=== PATIENT | female | born 1975 | race Caucasian/White ===

== ENCOUNTER → 2016-09-20 | Outpatient (CLI) | payer MEDICAID ==
--- NOTE | 2016-09-20 13:48 | DX ---
Chest, PA and Lateral History: Cough, wheezing, dyspnea x2 months, left-sided chest pain, history of asthma and cigarette s moking Comparison: August 22, 2011 Findings: Lungs are clear, without infiltrate or consolidation. Heart size is normal. There is no april nopathy or mass lesion. There is no pleural effusion, pneumomediastinum or pneumothorax. Bones are un remarkable for age. Impression: No pneumonia.
== END ==
LOC: FIMAGING 13:10
PROVIDERS: ATTEND Family Medicine
DX: R05 Cough (principal); R06.00 Dyspnea, unspecified; R07.9 Chest pain, unspecified; J45.909 Unspecified asthma, uncomplicated; Z87.891 Personal history of nicotine dependence

== ENCOUNTER 2017-01-17 14:11 | Emergency (ER) | payer MEDICAID ==
--- NOTE | 2017-01-17 14:28 | EDPHY ---
H & P Stated Complaint: multiple complaints of achy joints muscle twitching Time Seen by Provider: 01/17/17 14:27 HPI/ROS: CHIEF COMPLAINT: [ ] HISTORY OF PRESENT ILLNESS: [Need 4: Location, Duration, Severity, Quality, Context, Timing Modifying Factors, Associated S&S] REVIEW OF SYSTEMS: A comprehensive 10 point review of systems is otherwise negative aside from elements mentioned in the history of present illness. - Personal History LMP (Females 10-55): Irregular Current Tetanus Diphtheria and Acellular Pertussis (TDAP): No - Medical/Surgical History Hx Asthma: Yes Hx Chronic Respiratory Disease: No Hx Diabetes: No Hx Cardiac Disease: No Hx Renal Disease: No Hx Cirrhosis: No Hx Alcoholism: No Hx HIV/AIDS: No Hx Splenectomy or Spleen Trauma: No Other PMH: Addiction hx: alcohol and drugs psych, appy. BIPOLAR, PTSD, ANXIETY. CHRONIC BRONCHITIS,ASTHMA. POSSIBLE SZ DISORDER. ESOPAHGITIS, ibs, GI ISSUES. HYPOGLYCEMIA. UTI APR 2014 - Social History Smoking Status: Former smoker - Physical Exam Exam: General Appearance: [Alert, no distress] Eyes: [Pupils equal and round no pallor or injection] ENT, Mouth: [Mucous membranes moist] Respiratory: [There are no retractions, lungs are clear to auscultation] Cardiovascular: [Regular rate and rhythm] Gastrointestinal: [Abdomen is soft and nontender, no masses, bowel sounds normal] Neurological: [A&O, normal motor function, normal sensory exam, normal cranial nerves] Skin: [Warm and dry, no rashes] Musculoskeletal: [Neck is supple nontender] Extremities: [symmetrical, full range of motion] Psychiatric: [Patient is oriented X 3, there is no agitation] Constitutional: Initial Vital Signs Temperature (C) 36.8 C 01/17/17 14:18 Heart Rate 108 H 01/17/17 14:18 Respiratory Rate 16 01/17/17 14:18 Blood Pressure 122/87 H 01/17/17 14:18 O2 Sat (%) 98 01/17/17 14:18 O2 Delivery Mode Room Air Allergies/Adverse Reactions: aripiprazole [From Abilify] Allergy (Verified 06/01/14 01:28) azithromycin Allergy (Verified 06/01/14 01:28) erythromycin base [Erythromycin Base] Allergy (Verified 06/01/14 01:28) nefazodone HCl [From Serzone] Allergy (Verified 06/01/14 01:28) Penicillins Allergy (Verified 06/01/14 01:28) Home Medications: Medication Instructions Recorded buPROPion [Wellbutrin 100mg (RX)] 0 mg PO TID 07/15/12 Prestique 06/01/14 Albuterol Sulfate [Albuterol 08/19/14 Inhaler Hfa] Departure - Departure Referrals: Debbie Reyes MD [Primary Care Provider] - As per Instructions
--- NOTE | 2017-01-17 14:52 | EDPHY ---
H & P Stated Complaint: multiple complaints of achy joints muscle twitching Time Seen by Provider: 01/17/17 14:27 HPI/ROS: CHIEF COMPLAINT: Multiple complaints HISTORY OF PRESENT ILLNESS: The patient presents to the ED with multiple complaints. She reportedly has had some paresthesias, diarrhea, palpitations, visual changes and mild abdominal pain. 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 She reportedly had been on therapy which was stopped by her retinal specialist. The patient typically receives her care at the [facility]. The patient is also on a number of psychiatric medications and has recently changed her dose of Neurontin. REVIEW OF SYSTEMS: A comprehensive 10 point review of systems is otherwise negative aside from elements mentioned in the history of present illness. Source: Patient Exam Limitations: No limitations - Personal History LMP (Females 10-55): Irregular Current Tetanus Diphtheria and Acellular Pertussis (TDAP): No - Medical/Surgical History Hx Asthma: Yes Hx Chronic Respiratory Disease: No Hx Diabetes: No Hx Cardiac Disease: No Hx Renal Disease: No Hx Cirrhosis: No Hx Alcoholism: No Hx HIV/AIDS: No Hx Splenectomy or Spleen Trauma: No Other PMH: Addiction hx: alcohol and drugs psych, appy. BIPOLAR, PTSD, ANXIETY. CHRONIC BRONCHITIS,ASTHMA. POSSIBLE SZ DISORDER. ESOPAHGITIS, ibs, GI ISSUES. HYPOGLYCEMIA. UTI APR 2014 - Social History Smoking Status: Former smoker - Physical Exam Exam: General Appearance: Alert, no distress Eyes: Pupils equal and round no pallor or injection ENT, Mouth: Mucous membranes moist Respiratory: There are no retractions, lungs are clear to auscultation Cardiovascular: Regular rate and rhythm Gastrointestinal: Abdomen is soft and nontender, no masses, bowel sounds normal Neurological: A&O, normal motor function, normal sensory exam, normal cranial nerves Skin: Warm and dry, no rashes Musculoskeletal: Neck is supple nontender Extremities: symmetrical, full range of motion Constitutional: Initial Vital Signs Temperature (C) 36.8 C 01/17/17 14:18 Heart Rate 108 H 01/17/17 14:18 Respiratory Rate 16 01/17/17 14:18 Blood Pressure 122/87 H 01/17/17 14:18 O2 Sat (%) 98 01/17/17 14:18 O2 Delivery Mode Room Air Allergies/Adverse Reactions: aripiprazole [From Abilify] Allergy (Verified 06/01/14 01:28) azithromycin Allergy (Verified 06/01/14 01:28) erythromycin base [Erythromycin Base] Allergy (Verified 06/01/14 01:28) nefazodone HCl [From Serzone] Allergy (Verified 06/01/14 01:28) Penicillins Allergy (Verified 06/01/14 01:28) Home Medications: Medication Instructions Recorded buPROPion [Wellbutrin 100mg (RX)] 0 mg PO TID 07/15/12 Prestique 06/01/14 Albuterol Sulfate [Albuterol 08/19/14 Inhaler Hfa] Medical Decision Making ED Course/Re-evaluation: The patient presents to the ED with a multiple set constellation of complaints primarily surroundings concerns of her toxoplasmosis. I have told the patient that I feel she be more appropriately evaluated by infectious disease. She has no evidence of septic physiology or an abnormal neurologic examination. The patient has been to the care of a neurologist for her chronic seizure disorder. She is also under the care of a retinal specialist. 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 Please contact the Infectious Disease specialist you have been referred to for further discussion of your history of toxoplasmosis. 2. Please follow up with your primary care provider as scheduled. 3. I do recommend scheduling a follow-up appointment with your retinal specialist. Referrals: Debbie Reyes MD [Primary Care Provider] - As per Instructions Kali Her MD [Medical Doctor] - As per Instructions
[2017-01-17] MEDS ORDERED: NS 1,000 ML IV ONE (15:28)
--- NOTE | 2017-01-17 15:35 | CPEKG ---
Heart Rate: 81 RR Interval: 741 P-R Interval: 160 QRSD Interval: 86 QT Interval: 372 QTC Interval: 432 P [place]: 80 QRS [place]: 31 T Wave [place]: 78 EKG Severity - NORMAL ECG - EKG Impression: SINUS RHYTHM Electronically Signed By: Rodolfo Gonzalez 17-Jan-2017 17:28:35
[2017-01-17 16:08] LABS: % IMMATURE GRANULYOCYTES 0.5 % (0.0-1.1); ABSOLUTE IMMATURE GRANULOCYTES 0.05 10^3/uL (0.00-0.10); ADD DIFF? NO; ADD MORPH? NO; ADD SCAN? NO; ATYPICAL LYMPHOCYTE FLAG 0 (0-99); FRAGMENT RBC FLAG 0 (0-99); HEMOGLOBIN 13.7 g/dL (12.6-16.3); LEFT SHIFT FLG 0 (0-99); LIPEMIA HEMOLYSIS FLAG 90 (0-99); MEAN CELL HEMOGLOBIN 31.1 pg (27.9-34.1); MEAN CELL HEMOGLOBIN CONCENTR. 34.3 g/dL (32.4-36.7); MEAN CELL VOLUME 90.9 fL (81.5-99.8); MEAN PLATELET VOLUME 8.9 fL (8.7-11.7); PLATELET CLUMPS FLAG 20 (0-99); PLATELET COUNT 316 10^3/uL (150-400); RED CELL DISTRIBUTION WIDTH 12.4 % (11.5-15.2)
[2017-01-17 16:21] LABS: ALANINE AMINOTRANSFERASE 24 IU/L (9-52); ALBUMIN 4.8 g/dL (3.5-5.0); ALKALINE PHOSPHATASE 68 IU/L (38-126); ANION GAP 11 mEq/L (8-16); ASPARTATE AMINOTRANSFERASE 22 IU/L (14-46); BILIRUBIN,TOTAL 0.5 mg/dL (0.1-1.4); BILIRUBIN-CONJUGATED 0.5 mg/dL (0.0-0.5); CALCIUM 9.7 mg/dL (8.5-10.4); CARBON DIOXIDE 22 mEq/l (22-31); CHLORIDE 100 mEq/L (97-110); CREATININE 0.6 mg/dL (0.6-1.0); GLOMERULAR FILTRATION RATE > 60; GLUCOSE 110 mg/dL (70-100); SODIUM 133 mEq/L (134-144); TOTAL PROTEIN 7.5 g/dL (6.3-8.2)
[2017-01-17 16:44] VITALS: O2SAT 96
[2017-01-17] MEDS ORDERED: GADOBUTROL 10 ML VIAL IVP ONE (18:23)
[2017-01-17 19:19] VITALS: BP 128/83; PULSE 76; RESP 16; TEMP 98.8
[2017-01-19 11:11] LABS: TOXOPLASMA IGG ANTIBODY Positive (Negative); TOXOPLASMA IGG VALUE >900 IU/mL; TOXOPLASMA IGM ANTIBODY Positive (Negative)
== END 2017-01-17 19:19 | disposition home or self-care (01) ==
DX: B58.01 Toxoplasma chorioretinitis (principal); J45.909 Unspecified asthma, uncomplicated; Z87.891 Personal history of nicotine dependence
CPT/HCPCS: 86777-90; 86778-90; A9585

== ENCOUNTER → 2017-01-26 | Outpatient (CLI) | payer MEDICAID | LOC: FIMAGING 10:37 | PROVIDERS: ATTEND Internal Medicine Infectious Disease | DX: R07.9 Chest pain, unspecified (principal) ==

== ENCOUNTER 2018-01-20 16:38 | Inpatient (IN) | payer MEDICAID ==
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
[2018-01-20 18:12] LABS: PLATELET COUNT 300 10^3/uL (150-400)
[2018-01-20] MEDS ORDERED: LORazepam 1 MG TAB PO ONE (19:36)
[2018-01-20] MEDS ORDERED: OLANZapine DISINTEGR 5 MG TAB PO ONE (22:28)
[2018-01-20] MEDS ORDERED: OLANZapine DISINTEGR 5 MG TAB ONE (22:29)
[2018-01-20] MEDS ORDERED: QUEtiapine FUMARATE 50 MG TAB PO ONE (22:40)
[2018-01-20] MEDS ORDERED: ACETAMINOPHEN 500 MG TAB PO ONE (22:40)
[2018-01-20] MEDS ORDERED: ONDANSETRON DISINTEGRATING 4 MG TAB PO ONE (22:40)
[2018-01-20] MEDS ORDERED: ALPRAZolam 0.25 MG TAB PO ONE (22:42)
[2018-01-20] MEDS ORDERED: ALPRAZolam 0.25 MG TAB ONE (22:53)
[2018-01-20] MEDS ORDERED: ACETAMINOPHEN 500 MG TAB ONE (22:54)
[2018-01-20] MEDS ORDERED: ONDANSETRON DISINTEGRATING 4 MG TAB ONE (22:54)
[2018-01-20] MEDS ORDERED: LORazepam 1 MG TAB ONE (22:54)
[2018-01-21] MEDS ORDERED: ACETAMINOPHEN 325 MG TAB PO PRN (02:05)
[2018-01-21] MEDS ORDERED: MAGNESIUM HYDROXIDE 30 ML UDCUP PO PRN (02:05)
[2018-01-21] MEDS ORDERED: MAG HYDROX/AL HYDROX/SIMETH 30 ML UDCUP PO PRN (02:08)
[2018-01-21] MEDS ORDERED: IBUPROFEN 200 MG TAB PO PRN (02:08)
[2018-01-21] MEDS ORDERED: ALBUTEROL 60 PUFFS/8 GM MDI IH PRN (02:10)
[2018-01-21] MEDS: QUEtiapine FUMARATE 50 MG TAB PO PRN ×2 (02:19→09:25)
[2018-01-21] MEDS: clonazePAM 0.5 MG TAB PO PRN ×2 (02:20→09:25)
[2018-01-21] MEDS: ONDANSETRON DISINTEGRATING 4 MG TAB PO PRN (13:32)
[2018-01-21] MEDS: buPROPion XL 150 MG TAB PO SCH (13:33)
[2018-01-21] MEDS ORDERED: GABAPENTIN 300 MG CAP PO ONE (13:47)
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
--- NOTE | 2018-01-21 14:58 | CPEKG ---
Heart Rate: 82 RR Interval: 732 P-R Interval: 144 QRSD Interval: 82 QT Interval: 380 QTC Interval: 444 P Ragley: 44 QRS Ragley: 23 T Wave Ragley: 75 EKG Severity - NORMAL ECG - EKG Impression: SINUS RHYTHM Electronically Signed By: Zee Ford 22-Jan-2018 08:42:44
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
[2018-01-21] MEDS: GABAPENTIN 300 MG CAP PO SCH ×2 (16:13→21:02)
[2018-01-21] MEDS ORDERED: QUEtiapine FUMARATE 200 MG TAB PO SCH (21:00)
[2018-01-22] MEDS: buPROPion XL 150 MG TAB PO SCH (07:55)
[2018-01-22] MEDS: GABAPENTIN 300 MG CAP PO SCH (07:55)
[2018-01-22] MEDS: ONDANSETRON DISINTEGRATING 4 MG TAB PO PRN (09:03)
[2018-01-22] MEDS: QUEtiapine FUMARATE 50 MG TAB PO PRN ×2 (09:35→12:06)
[2018-01-22 09:41] VITALS: BP 143/74
[2018-01-22] MEDS ORDERED: QUEtiapine FUMARATE 25 MG TAB PO ONE (11:36)
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
== END 2018-01-22 13:49 | disposition home or self-care (01) | DRG 755 ==
LOC: BBEH 01-21 00:55
PROVIDERS: ADMIT Psychiatry & Neurology Behavioral Neurology & Neuropsychiatry; ATTEND Psychiatry & Neurology Behavioral Neurology & Neuropsychiatry
DX: F43.10 Post-traumatic stress disorder, unspecified (principal); F17.200 Nicotine dependence, unspecified, uncomplicated; F41.9 Anxiety disorder, unspecified; T42.4X6A Underdosing of benzodiazepines, initial encounter; F32.9 Major depressive disorder, single episode, unspecified; F60.3 Borderline personality disorder; J45.909 Unspecified asthma, uncomplicated; R00.0 Tachycardia, unspecified; K29.70 Gastritis, unspecified, without bleeding; K20.9 Esophagitis, unspecified
CPT/HCPCS: 80305; G0480